=== PATIENT | female | born 2000 | race African-American/Black ===

== ENCOUNTER 2021-09-05 12:20 | Emergency (ER) | payer OTHER ==
[2021-09-05 12:28] VITALS: BP 130/72; PULSE 99; TEMP 98.8; BMI 26.4
[2021-09-06 18:08] LABS: SARS-CoV-2 NAA Not Detected (Not Detected)
== END 2021-09-05 14:49 | disposition home or self-care (01) ==
LOC: JER 12:20
DX: R11.2 Nausea with vomiting, unspecified (principal)
CPT/HCPCS: 84703; 87804; 99283-25; C9803-CS; U0003; U0005